=== PATIENT | male | born 1970 | race Caucasian/White ===

== ENCOUNTER 2018-07-08 19:07 | Emergency (ER) | payer BC ==
[2018-07-08 20:09] LABS: Absolute Lymphocytes (CBC) 1.1 K/uL (0.7-4.9); Absolute Monocytes 0.3 K/uL (0.1-1.3); Absolute Neutrophil 3.1 K/uL (1.8-8.0); Eosinophils % 3.2 % (0-4.4); Hematocrit 42.5 % (39.6-49.0); Lymphocytes % 23.6 % (15.3-44.8); MCH 30.1 pg (27.0-35.0); MPV 7.9 fL (7.6-11.3); Monocytes % 6.2 % (3.3-12.3); RBC Red Blood Cell Count 4.77 M/uL (4.33-5.43)
[2018-07-08 20:26] LABS: Potassium 3.6 mmol/L (3.5-5.1); Uric Acid 5.1 mg/dL (3.5-7.2)
--- NOTE | 2018-07-08 20:41 | EDPHYS ---
Physician Documentation [facility] Name: Graham James Age: 47 yrs Sex: Male : 1970 Arrival Date: 07/08/2018 Time: 19:11 Bed 27 Private MD: Ashlee Gaspar H ED Physician Cyrus Harris HPI: 07/08 20:33 This 47 yrs old Male presents to ER via Ambulatory with complaints of ALL gs JOINTS HURT. 20:33 pt states joints hurting and swelling since Tuesday, effects different joints at gs different times, today left hand throbbing mild swelling. denies tick bite, rash, fever. Onset: The symptoms/episode began/occurred 5 day(s) ago. Severity of symptoms: At their worst the symptoms were moderate in the emergency department the symptoms are unchanged. The patient has not experienced similar symptoms in the past. The patient has been recently seen at the [facility] Emergency Department, a couple of weeks ago. Historical: - Allergies: 19:22 No Known Allergies; aj1 - Home Meds: 19:22 Hydralazine Oral [Active]; losartan oral oral [Active]; aj1 - PMHx: 19:22 Hypertension; thoracic aortic aneurysm- graft placed; horse shoe kidney; aj1 - Immunization history:: Flu vaccine is not up to date. - Social history:: Smoking status: Patient/guardian denies using tobacco, the patient reports quitting approximately 5 years ago. - Ebola Screening: : Patient denies travel to an Ebola-affected area in the 21 days before illness onset. ROS: 20:33 All other systems are negative. gs Exam: 20:33 Head/Face: Normocephalic, atraumatic. Eyes: Pupils equal round and reactive to light, gs extra-ocular motions intact. Lids and lashes normal. Conjunctiva and sclera are non-icteric and not injected. Cornea within normal limits. Periorbital areas with no swelling, redness, or edema. ENT: Nares patent. No nasal discharge, no septal abnormalities noted. Tympanic membranes are normal and external auditory canals are clear. Oropharynx with no redness, swelling, or masses, exudates, or evidence of obstruction, uvula midline. Mucous membranes moist. Neck: Trachea midline, no thyromegaly or masses palpated, and no cervical lymphadenopathy. Supple, full range of motion without nuchal rigidity, or vertebral point tenderness. No Meningismus. Chest/axilla: Normal chest wall appearance and motion. Nontender with no deformity. No lesions are appreciated. Cardiovascular: Regular rate and rhythm with a normal S1 and S2. No gallops, murmurs, or rubs. Normal PMI, no JVD. No pulse deficits. Respiratory: Lungs have equal breath sounds bilaterally, clear to auscultation and percussion. No rales, rhonchi or wheezes noted. No increased work of breathing, no retractions or nasal flaring. Abdomen/GI: Soft, non-tender, with normal bowel sounds. No distension or tympany. No guarding or rebound. No evidence of tenderness throughout. Back: No spinal tenderness. No costovertebral tenderness. Full range of motion. Skin: Warm, dry with normal turgor. Normal color with no rashes, no lesions, and no evidence of cellulitis. Neuro: Awake and alert, GCS 15, oriented to person, place, time, and situation. Cranial nerves II-XII grossly intact. Motor strength 5/5 in all extremities. Sensory grossly intact. Cerebellar exam normal. Normal gait. 20:33 Constitutional: The patient appears alert, awake. 20:33 Musculoskeletal/extremity: Extremities: noted in the left hand: mild swelling , mild tender dorsum of hand, ROM: intact in all extremities, Pulses: are normal with no appreciated deficits, Sensation intact. Vital Signs: 19:22 BP 181 / 82; Pulse 103; Resp 20; Temp 98.1; Pulse Ox 96% on R/A; Weight 134.26 kg (R); aj1 Height 6 ft. 2 in. (187.96 cm) (R); Pain 10/10; 20:45 BP 138 / 79; Pulse 95; Resp 14; Pulse Ox 96% ; aj1 19:22 Body Mass Index 38.00 (134.26 kg, 187.96 cm) aj1 MDM: 19:41 Patient medically screened. gs 20:33 Differential Diagnosis lyme dz, polyarthritis, lupus, gout. Data reviewed: vital signs, gs nurses notes, lab test result(s). Response to treatment: There is no appreciated change of the patient's symptoms at this time, and as a result, I will discharge patient. ED course: discussed need for rheumatologic workup. 08/11 19:42 Order name: CBC with Diff; Complete Time: 20:20 07/08 19:42 Order name: Basic Metabolic Panel; Complete Time: 20:32 07/08 19:42 Order name: Uric Acid; Complete Time: 20:32 Administered Medications: No medications were administered Disposition: 07/08/18 20:40 Discharged to Home. Impression: Polyarthritis, unspecified. - Condition is Stable. - Discharge Instructions: Arthritis, [id number]. - Medication Reconciliation Form, Thank You Letter, Antibiotic Education, Prescription Opioid Use form. - Follow up: Ashlee Gaspar DO; When: 2 - 3 days; Reason: Re-evaluation by your physician. Signatures: Dispatcher [employer] EDMichelle Encinas RN RN aj1 Cyrus Harris MD MD gs Corrections: (The following items were deleted from the chart) 21:02 20:40 07/08/2018 20:40 Discharged to Home. Impression: Polyarthritis, unspecified. aj1 Condition is Stable. Forms are Medication Reconciliation Form, Thank You Letter, Antibiotic Education, Prescription Opioid Use. Follow up: Ashlee Gaspar; When: 2 - 3 days; Reason: Re-evaluation by your physician.
--- NOTE | 2018-07-08 20:41 | ER ---
Nurse's Notes [facility] Name: Graham James Age: 47 yrs Sex: Male : 1970 Arrival Date: 07/08/2018 Time: 19:11 Bed 27 Private MD: Ashlee Gaspar H Diagnosis: Polyarthritis, unspecified Presentation: 07/08 19:15 Presenting complaint: Patient states: 2 weeks ago when he went to bed the back of his aj1 left hand has been hurting, then the next night his right hand began hurting and then his ankles and his shoulders. States he has been unable to sleep for 2 days because of the pain. Denies fever. Transition of care: patient was not received from another setting of care. Onset of symptoms was May 2018. Risk Assessment: Do you want to hurt yourself or someone else? Patient reports no desire to harm self or others. Initial Sepsis Screen: Does the patient meet any 2 criteria? HR > 90 bpm. No. Patient's initial sepsis screen is negative. Does the patient have a suspected source of infection? No. Patient's initial sepsis screen is negative. Care prior to arrival: None. 19:15 Method Of Arrival: Ambulatory [facility] 19:15 Acuity: CHEIKH 3 aj1 Triage Assessment: 19:22 General: Appears in no apparent distress. uncomfortable, Behavior is calm, cooperative, aj1 appropriate for age. Pain: Complains of pain in left trapezius, right trapezius, right hand, left hand, right foot and left foot. Neuro: Level of Consciousness is awake, alert, obeys commands, Speech is normal, Facial symmetry appears normal. Cardiovascular: Patient's skin is warm and dry. Respiratory: Airway is patent Respiratory effort is even, unlabored, Respiratory pattern is regular, symmetrical. Historical: - Allergies: 19:22 No Known Allergies; aj1 - Home Meds: 19:22 Hydralazine Oral [Active]; losartan oral oral [Active]; aj1 - PMHx: 19:22 Hypertension; thoracic aortic aneurysm- graft placed; horse shoe kidney; aj1 - Immunization history:: Flu vaccine is not up to date. - Social history:: Smoking status: Patient/guardian denies using tobacco, the patient reports quitting approximately 5 years ago. - Ebola Screening: : Patient denies travel to an Ebola-affected area in the 21 days before illness onset. Screenin:32 Abuse screen: Denies threats or abuse. Denies injuries from another. Nutritional bp screening: No deficits noted. Tuberculosis screening: No symptoms or risk factors identified. Fall Risk None identified. Assessment: 19:31 General: SEE TRIAGE NOTE. 47YO WM P/W NON-ACUTE JOINT PAIN. NO TRAUMA OR DEFORMITY. bp 21:02 Reassessment: PT D/C HOME AMBULATORY, S/S RELIEVED, DX WITH POLYARTHRITIS. aj1 Vital Signs: 19:22 BP 181 / 82; Pulse 103; Resp 20; Temp 98.1; Pulse Ox 96% on R/A; Weight 134.26 kg (R); aj1 Height 6 ft. 2 in. (187.96 cm) (R); Pain 10/10; 20:45 BP 138 / 79; Pulse 95; Resp 14; Pulse Ox 96% ; aj1 19:22 Body Mass Index 38.00 (134.26 kg, 187.96 cm) aj1 ED Course: 19:11 Patient arrived in ED. es 19:12 Ashlee Gaspar DO is Private Physician. 19:20 Triage completed. aj1 19:22 Arm band placed on Patient placed in an exam room. aj1 19:30 Martin Vides, RN is Primary Nurse. bp 19:31 Cyrus Harris MD is Attending Physician. gs 19:32 Patient has correct armband on for positive identification. Bed in low position. Call bp light in reach. Side rails up X2. 20:01 Inserted saline lock: 20 gauge in left antecubital area, using aseptic technique. Blood aj1 collected. 20:40 Ashlee Gaspar DO is Referral Physician. Administered Medications: No medications were administered Outcome: 20:40 Discharge ordered by . gs 21:02 Patient left the ED. aj1 Signatures: Michelle Rivera RN RN aj1 Sejal Dewey Gregory, MD MD Martin Vides RN RN bp
== END 2018-07-08 21:02 | disposition home or self-care (01) ==
LOC: ER 19:07
DX: M13.0 Polyarthritis, unspecified (principal); I10 Essential (primary) hypertension; Q63.1 Lobulated, fused and horseshoe kidney
CPT/HCPCS: 36415; 80048; 84550; 85025; 99283

== ENCOUNTER 2023-01-30 10:41 | Emergency (ER) | payer BC ==
--- OUTSIDE RECORDS SUMMARY | 2023-01-30 10:55 | XMS REPORT | Continuity of Care Document ---
:1970 Author Organization [facility] t Address 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 Added automatic ally from request for surgery [id number] Allergies, Adverse Reactions, Alerts This patient has no known allergies or adverse reactions. Social History Social Habit Start Date Stop Date Quantity Comments Source Alcohol intake 2020-06-02 2020-06-02 Ex-drinker [facility] 00:00:00 00:00:00 (finding) [facility] Cigarettes smoked 2020-04-25 2020-04-[address] current (pack per 00:00:00 00:00:00 Hospita l day) - Reported Cigarette 2020-04-25 2020-04-25 [facility] pack-years 00:00:00 00:00:00 Hospital Tobacco use and 2020-04-25 2020-04-25 Smokeless tobacco [facility] exposure 00:00:00 00:00:00 non-user Hospital History of tobacco 1988-05-01 2013-11-17 Current smoker [facility] use 00:00:00 00:00:00 Hospital Sex Assigned At [birth year] [facility] 00:00:00 00:00:00 Hospital Smoking Status Start Date Stop Date Source Ex-smoker 2020-04-25 00:00:00 2020-04-25 00:00:00 [facility] Medications Ordered Filled Start Stop Current Ordering Indication Dosage Frequency Signature Comments Components Source Medication Medication Date Date Medication? Clinician (SIG) Name Name amLODIPine- 2019- Yes 1{capsu QD Take 1 M ethodi benazepriL 6-05 le} capsule by st (LOTREL) 13:07: mouth Hospita 10-20 mg 58 daily. l per capsule carvediloL 2020-0 Yes 25mg Q.5D Take 25 mg M ethodi (COREG) 25 6-[address] MG tablet 13:07: (two) Hospita 58 times a l day with meals. hydroCHLORO 2020-0 Yes 25mg QD Take 25 mg Methodi thiazide 6-[address] (HYDRODIURI 13:07: daily. Hosp liz L) 25 MG 58 l tablet losartan 2020-0 Yes 100mg QD Take 100 Meth ronni (COZAAR) 6-[address] 100 MG 13:07: mouth Hospita tablet 58 daily. l lovastatin 2020-0 Yes 40mg QD Take 40 mg M ethodi (MEVACOR) 6-[address] 40 MG 13:07: nightly. Hospita tablet 58 l Procedures This patient has no known procedures. Plan of Care Planned Activity Planned Date Details Comments Source Future Scheduled 2022-11-14 [facility]ACCINE (#[facility] 07:55:32 [code = COVID-19 VACCINE (#1)] Future Scheduled 2022-11-14 [facility] C [facility] 07:55:32 (procedure) [code = 920799212] Future Scheduled 2022-11-14 [facility]ONOSCOPY SCREENING [facility] 07:55:32 [code = COLONOSCOPY SCREENING] Future Scheduled 2022-11-14 INFLUENZA VACCINE [facility] Test 07:55:32 [code = INFLUENZA VACCINE] Future Scheduled 2022-11-14 SHINGLES VACCINES (1 Met [facility] Test 07:55:32 of 2) [code = SHINGLES VACCINES (1 of 2)] Encounters Start End Encounter Admission Attending Care Care Encounter Source Date/Time Date/Time Type Type Clinicians Facility Department ID 2020-06-02 2020-06-02 Outpatient PATTI, [facility] [id number] Arrey 00:00:00 00:00:00 BAKARI [address] 2020-05-09 2020-05-09 Outpatient [facility] [id number] Arrey 00:00:00 00:00:[address] 2020-05-09 2020-05-09 Outpatient [facility] [id number] Arrey 00:00:00 00:00:[address] 2020-05-01 2020-05-02 Inpatient PATTI, [facility] [id number] Arrey 00:00:00 00:00:00 BAKARI [address] 2020-04-25 2020-04-25 Outpatient PATTI, [facility] [id number] Arrey 00:00:00 00:00:00 BAKARI [address] 2020-03-28 2020-03-28 Outpatient PATTI, [facility] [id number] Arrey 00:00:00 00:00:00 BAKARI [address] 2020-03-28 2020-03-28 Outpatient PATTI, [facility] [id number] Arrey 00:00:00 00:00:00 BAKARI [address] 2020-03-28 2020-03-28 Outpatient PATTI, [facility] [id number] Arrey 00:00:00 00:00:00 BAKARI [address] 2020-03-28 2020-03-28 Outpatient PATTI, [facility] [id number] Arrey 00:00:00 00:00:00 BAKARI [address] 2020-03-28 2020-03-28 Outpatient PATTI, [facility] [id number] Arrey 00:00:00 00:00:00 BAKARI [address] Results This patient has no known results.
[2023-01-30] MEDS ORDERED: ONDANSETRON 4 MG/2 ML VIAL ONE (11:19)
[2023-01-30 11:25] LABS: Urine Blood 2+ (Negative); Urine Glucose Negative (Negative); Urine Protein 3+ (Negative); Urine Specific Gravity 1.025 (1.005-1.030); Urine pH 5.5 (5.0-7.0)
[2023-01-30] MEDS ORDERED: NA CHLORIDE 0.9% 1,000 ML ONE (11:38)
[2023-01-30] MEDS ORDERED: ACETAMINOPHEN 500 MG TAB ONE (11:38)
[2023-01-30] MEDS ORDERED: KETOROLAC 30 MG/ML INJ ONE (11:38)
[2023-01-30 11:39] LABS: Absolute Lymphocytes (CBC) 0.6 K/uL (0.7-4.9); Lymphocytes % 4.7 % (15.3-44.8); MCV 88.9 fL (80-100); MPV 8.7 fL (7.6-11.3); RBC Red Blood Cell Count 4.73 M/uL (4.33-5.43)
[2023-01-30 11:42] LABS: Protime INR 1.15
[2023-01-30 11:44] LABS: Urine Bacteria 20-50 /HPF (<20); Urine Mucus Slight /HPF (None Seen); Urine RBC >50 /HPF (None Seen)
[2023-01-30 11:53] LABS: Albumin 4.2 g/dL (3.4-5.0); Bilirubin Total 1.3 mg/dL (0.2-1.0); Potassium 3.6 mmol/L (3.5-5.1); Protein, Total 8.1 g/dL (6.4-8.2)
[2023-01-30] MEDS ORDERED: CEFTRIAXONE 1000 MG/VIAL ONE (11:55)
[2023-01-30] MEDS ORDERED: NA CHLORIDE 0.9% 50 ML ONE (11:55)
--- NOTE | 2023-01-30 12:43 | EDPHYS ---
Physician Documentation [facility] Name: Graham James Age: 52 yrs Sex: Male : 1970 Arrival Date: 01/30/2023 Time: 10:42 Bed 12 Private MD: Hu Renee ED Physician Layo Dickens HPI: 01/30 11:14 This 52 yrs old Male presents to ER via Ambulatory with complaints of Flank Pain, en Urinary Problem. 11:14 52-year-old male with history of neurogenic bladder secondary to complication from en thoracic aneurysm surgical repair who self caths presents to ED with 2 days of worsening low back pain with nausea, vomiting, chills and subjective fevers. He was seen at urgent care yesterday and was discharged home with Bactrim but he is unable to keep it down. He reports increased pain and worsening fevers today.. Historical: - Allergies: 10:58 No Known Allergies; vg1 - Home Meds: 10:58 losartan Oral [Active]; carvedilol oral [Active]; amlodipine oral [Active]; vg1 Hydrochlorothiazide Oral [Active]; - PMHx: 10:58 horse shoe kidney; Hypertension; thoracic aortic aneurysm- graft placed; vg1 - Immunization history:: Client reports having NOT received the Covid vaccine. - Social history:: Smoking status: Patient denies any tobacco usage or history of. ROS: 11:14 Constitutional: Positive for body aches, chills, fever. en 11:14 Abdomen/GI: Positive for nausea and vomiting. 11:14 Back: Positive for flank pain. Exam: 11:14 Constitutional: The patient appears Visibly uncomfortable, actively vomiting en 11:14 ENT: Mouth: Oral mucosa: pink and intact, moist. 11:14 Cardiovascular: Exam negative for 11:14 Cardiovascular: Rate: normal, Rhythm: regular. 11:14 Respiratory: Exam negative for Breath sounds: are clear throughout. 11:14 Abdomen/GI: Inspection: abdomen appears normal, Bowel sounds: normal, Palpation: abdomen is soft and non-tender. 11:14 Back: Bilateral CVA tenderness greater on the left. Vital Signs: 10:56 BP 139 / 62; Pulse 88; Resp 20; Temp 101.3(O); Pulse Ox 100% ; Weight 136.08 kg; Height vg1 6 ft. 2 in. (187.96 cm); Pain 7/10; 12:34 BP 107 / 68; Pulse 81; Resp 15; Temp 99.8; Pulse Ox 100% ; ss 10:56 Body Mass Index 38.52 (136.08 kg, 187.96 cm) vg1 MDM: 11:07 Patient medically screened. en 11:14 Differential diagnosis: Patient with fever of 101.3 he is at risk for sepsis secondary en to urinary tract infection versus pyelonephritis. Sepsis bundle was initiated with blood cultures and lactic acid. We will start 1 g Rocephin and a liter of fluids. Will treat fever with Tylenol and Toradol for pain control. Patient actively vomiting so we will give Zofran. Data reviewed: vital signs, nurses notes, lab test result(s). 11:25 Data reviewed: lab test result(s), urinalysis, bacteruria, hematuria. en 12:02 Consideration of Admission/Observation Escalation of care including en admission/observation considered. Considered admission but patient improving and able to tolerate p.o. Vitals are stable. No evidence of severe sepsis or septic shock. Will complete IV antibiotics and fluids and discharged home with Omnicef pending urine culture and Zofran with close PCP follow-up. I considered the following discharge prescriptions or medication management in the emergency department Medications were administered in the Emergency Department. See MAR. ED course: Patient with a white blood cell count of 13. He is septic from a urinary tract infection without severe sepsis or septic shock.. 12:41 ED course: Patient feeling much better. He is tolerating p.o. with ease. Will DC home en with Omnicef, Motrin, Zofran and local PCP for follow-up. 12:48 Data reviewed: EKG, EKG with normal sinus rhythm at 84 bpm, normal intervals, normal en axis, no STEMI. Independent interpretation of the following test(s) in the Emergency Department school bus monitor: Normal sinus rhythm at 71 bpm. 01/30 11:09 Order name: Misc. Order: straight cath equipment; Complete Time: 11:29 en 01/30 11:09 Order name: Blood Culture Adult (2) en 01/30 11:09 Order name: CBC with Diff en 01/30 11:09 Order name: CMP en 01/30 11:09 Order name: Lactate w/ 2H reflex if indic. en 01/30 11:09 Order name: Protime (+inr) en 01/30 11:09 Order name: Ptt, Activated en 01/30 11:09 Order name: Urine Culture en 01/30 11:09 Order name: Urine Microscopic Only 01/30 11:09 Order name: EKG; Complete Time: 11:10 en 01/30 11:09 Order name: Accucheck; Complete Time: 12:19 en 01/30 11:09 Order name: Cardiac monitoring; Complete Time: 12:20 en 01/30 11:09 Order name: EKG - Nurse/Tech; Complete Time: 12:30 en 01/30 11:09 Order name: IV Saline Lock - Large Bore; Complete Time: 11:30 en 01/30 11:09 Order name: Labs collected and sent; Complete Time: 11:30 en 01/30 11:09 Order name: O2 Per Protocol; Complete Time: 11:30 en 01/30 11:09 Order name: O2 Sat Monitoring; Complete Time: 11:30 en 01/30 11:09 Order name: Vital Signs; Complete Time: 11:29 en 01/30 11:25 Order name: Urine Dipstick-Ancillary; Complete Time: 12:01 EDMS 01/30 11:30 Order name: Urine Dipstick-Ancillary (obtain specimen); Complete Time: 11:30 ss 01/30 11:42 Order name: Protime (+INR); Complete Time: 12:01 EDMS 01/30 11:42 Order name: PTT, Activated Partial Thromb; Complete Time: 12:01 EDMS 01/30 11:44 Order name: Urine Microscopic Only; Complete Time: 12:01 EDMS 01/30 11:53 Order name: CBC with Automated Diff; Complete Time: 12:01 EDMS 01/30 11:54 Order name: Comprehensive Metabolic Panel; Complete Time: 12:01 EDMS 01/30 11:55 Order name: Lactate w/ 2H reflex if indic.; Complete Time: 12:01 EDMS Administered Medications: 11:24 Drug: Zofran (Ondansetron) 4 mg Route: IVP; Site: left antecubital; vg1 12:37 Follow up: Response: No adverse reaction; Nausea is decreased jl7 11:35 Drug: Acetaminophen 1000 mg Route: PO; vg1 12:38 Follow up: Response: No adverse reaction; Temperature is decreased jl7 11:37 Drug: NS 0.9% 1000 ml Route: IV; Rate: 1000 ml; Site: left antecubital; vg1 13:00 Follow up: Response: No adverse reaction; IV Status: Completed infusion; IV Intake: jl7 1000ml 11:38 Drug: Ketorolac 30 mg Route: IVP; Site: left antecubital; vg1 13:00 Follow up: Response: No adverse reaction; Pain is decreased jl7 12:18 Drug: Rocephin (cefTRIAXone) 1 grams Route: IV; Rate: calculated rate; Site: left jl7 antecubital; 12:38 Follow up: Response: No adverse reaction; IV Status: Completed infusion jl7 Disposition: 14:00 Co-signature as Attending Physician, Layo Dickens MD I agree with the assessment and kdr plan of care. Disposition Summary: 01/30/23 12:42 Discharge Ordered Location: Home en Problem: an acute exacerbation en Symptoms: have improved en Condition: Stable en Diagnosis - UTI/ Urinary tract infection, site not specified en Followup: en - With: Hu Renee MD - When: 1 - 2 days - Reason: Re-evaluation by your physician Discharge Instructions: - Discharge Summary Sheet en - Urinary Tract Infection, Adult en Forms: - Medication Reconciliation Form en - Thank You Letter en - Antibiotic Education en - Prescription Opioid Use en Prescriptions: - cefdinir 300 mg Oral capsule - take 1 capsule by ORAL route every 12 hours for 10 days; 20 capsule; Refills: en 0, Product Selection Permitted - Ibuprofen 800 mg Oral Tablet - take 1 tablet by ORAL route every 12 hours As needed take with food; 20 tablet; en Refills: 0, Product Selection Permitted - Zofran 4 mg Oral Tablet - take 1 tablet by ORAL route every 12 hours As needed; 20 tablet; Refills: 0, en Product Selection Permitted Signatures: Dispatcher [employer] Laoy Hickey MD MD kdr Smirch, Shelby, RN RN ss Leal, Jahala, RN RN jl7 Veronica Willoughby RN RN vg1 Maggie Garcia PA PA en
--- NOTE | 2023-01-30 12:43 | ER ---
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 Coronavirus screen: Vaccine status: Patient reports being unvaccinated. Client denies travel out of the [place] in the last 14 days. Ebola Screen: Patient negative for fever greater than or equal to 101.5 degrees Fahrenheit, and additional compatible Ebola Virus Disease symptoms Patient denies exposure to infectious person. Initial Sepsis Screen: Does the patient meet any 2 criteria? Temp <36.0*C (96.8*F)) or > 38.3*C (100.9*F). Does the patient have a suspected source of infection? No. Patient's initial sepsis screen is negative. Risk Assessment: Do you want to hurt yourself or someone else? Patient reports no desire to harm self or others. Onset of symptoms was January 29, 2023. 10:56 Method Of Arrival: Ambulatory vg1 10:56 Acuity: CHEIKH 3 vg1 Triage Assessment: 10:58 General: Appears uncomfortable, Behavior is cooperative. Pain: Complains of pain in vg1 back and abdomen Pain currently is 7 out of 10 on a pain scale. Pain began 1 day ago. Cardiovascular: Patient's skin is warm and dry. GI: Reports nausea. : Reports pain blood in urine. Historical: - Allergies: 10:58 No Known Allergies; vg1 - Home Meds: 10:58 losartan Oral [Active]; carvedilol oral [Active]; amlodipine oral [Active]; vg1 Hydrochlorothiazide Oral [Active]; - PMHx: 10:58 horse shoe kidney; Hypertension; thoracic aortic aneurysm- graft placed; vg1 - Immunization history:: Client reports having NOT received the Covid vaccine. - Social history:: Smoking status: Patient denies any tobacco usage or history of. Screenin:31 [facility] ED Fall Risk Assessment (Adult) History of falling in the last 3 months, vg1 including since admission No falls in past 3 months (0 pts) Confusion or Disorientation No (0 pts) Intoxicated or Sedated No (0 pts) Impaired Gait Yes (1 pt) Mobility Assist Device Used No (0 pt) Altered Elimination No (0 pt) Score/Fall Risk Level 0 - 2 = Low Risk Oriented to surroundings, Maintained a safe environment, Educated pt \\T\\ family on fall prevention, incl call for assistance when getting out of bed, Assessed \\T\\ reinforced patient's understanding of fall precautions. Abuse screen: Denies threats or abuse. Denies injuries from another. Nutritional screening: No deficits noted. Tuberculosis screening: No symptoms or risk factors identified. Assessment: 11:05 Reassessment: pt needing a catheter to void; pt given 16 F. vg1 11:30 General: Appears in no apparent distress. uncomfortable, Behavior is calm, cooperative, jl7 appropriate for age. Pain: Complains of pain in back and abdomen Pain currently is 7 out of 10 on a pain scale. Neuro: Level of Consciousness is awake, alert, obeys commands, Oriented to person, place, time. Cardiovascular: Patient's skin is warm and dry. Respiratory: Airway is patent Respiratory effort is even, unlabored, Respiratory pattern is regular, symmetrical. GI: Reports lower abdominal pain. : Urine is blood tinged. Derm: Skin is pink, warm \\T\\ dry. 12:18 Reassessment: Attempted to obtain second set of blood cultures x3, pt refused after 3rd jl7 failed attempt. Antibiotics started at this time. Vital Signs: 10:56 BP 139 / 62; Pulse 88; Resp 20; Temp 101.3(O); Pulse Ox 100% ; Weight 136.08 kg; Height vg1 6 ft. 2 in. (187.96 cm); Pain 7/10; 12:34 BP 107 / 68; Pulse 81; Resp 15; Temp 99.8; Pulse Ox 100% ; ss 10:56 Body Mass Index 38.52 (136.08 kg, 187.96 cm) vg1 ED Course: 10:42 Patient arrived in ED. am2 10:42 Hu Renee MD is Private Physician. am2 10:49 [facility]. en 10:49 Layo Dickens MD is Attending Physician. en 10:58 Triage completed. vg1 10:58 Arm band placed on. vg1 11:02 Jan Burdick, ROS is Primary Nurse. jl7 11:20 Inserted saline lock: 20 gauge in left antecubital area, using aseptic technique. Blood vg1 collected. 11:20 Initial lab(s) drawn, by me, sent to lab. First set of blood cultures drawn by me. vg1 11:30 Client placed on continuous cardiac and pulse oximetry monitoring. NIBP monitoring jl7 applied. 11:31 Patient has correct armband on for positive identification. Placed in gown. Bed in low vg1 position. Call light in reach. Side rails up X 1. 12:32 EKG done, by ED staff. tm3 12:41 Hu Renee MD is Referral Physician. en 12:59 No provider procedures requiring assistance completed. IV discontinued, intact, jl7 bleeding controlled, No redness/swelling at site. Pressure dressing applied. Administered Medications: 11:24 Drug: Zofran (Ondansetron) 4 mg Route: IVP; Site: left antecubital; vg1 12:37 Follow up: Response: No adverse reaction; Nausea is decreased jl7 11:35 Drug: Acetaminophen 1000 mg Route: PO; vg1 12:38 Follow up: Response: No adverse reaction; Temperature is decreased jl7 11:37 Drug: NS 0.9% 1000 ml Route: IV; Rate: 1000 ml; Site: left antecubital; vg1 13:00 Follow up: Response: No adverse reaction; IV Status: Completed infusion; IV Intake: jl7 1000ml 11:38 Drug: Ketorolac 30 mg Route: IVP; Site: left antecubital; vg1 13:00 Follow up: Response: No adverse reaction; Pain is decreased jl7 12:18 Drug: Rocephin (cefTRIAXone) 1 grams Route: IV; Rate: calculated rate; Site: left jl7 antecubital; 12:38 Follow up: Response: No adverse reaction; IV Status: Completed infusion jl7 Medication: 12:18 VIS not applicable for this client. jl7 Intake: 13:00 IV: 1000ml; Total: 1000ml. jl7 Outcome: 12:42 Discharge ordered by . en 12:59 Discharged to home ambulatory. jl7 12:59 Condition: stable 12:59 Discharge instructions given to patient, Instructed on discharge instructions, follow up and referral plans. medication usage, Demonstrated understanding of instructions, follow-up care, medications, Prescriptions given X 3. 13:01 Patient left the ED. jl7 Signatures: Mohit Chatterjee tm3 Ros Vergara RN RN ss Jan Burdick RN RN jl7 Carolyn Hayden Victoria, RN RN vg1 Maggie Garcia PA PA en
[2023-01-30 13:53] VITALS: BP 107/68
[2023-01-30 13:57] VITALS: TEMP 100.5; O2SAT 98
--- NOTE | 2023-01-31 16:41 | EKG ---
Test Date: 2023-01-30 Test Time: 12:29:31 Correctional Nurse: DOMINICK MEASUREMENT RESULTS: Intervals: Rate: 84 NM: 180 QRSD: 92 QT: 344 QTc: 406 [place]: P: 27 NM: 180 QRS: 13 T: -85 INTERPRETIVE STATEMENTS: Normal sinus rhythm ST & T wave abnormality, consider inferior ischemia Abnormal ECG No previous ECG available for comparison Electronically Signed On 01-31-23 16:37:08 [employer] MACH[employer]PER[employer] HELPER by Genaro Whitney
== END 2023-01-30 13:01 | disposition home or self-care (01) ==
LOC: ER 10:41
DX: N39.0 Urinary tract infection, site not specified (principal); R11.2 Nausea with vomiting, unspecified; I10 Essential (primary) hypertension
CPT/HCPCS: 96365; 96361; 93005; 87040; 87088; 85025; 87086; 36415; 85610; 83605; 85730; 80053; 96375; 99284; J7030; J2405; 81003; 81015